=== PATIENT | male | born 1995 | race African-American/Black ===

== ENCOUNTER 2017-10-21 08:21 | Outpatient (CLI) | payer SELFPAY ==
--- NOTE | 2017-10-21 10:26 | HP ---
DATE OF SERVICE: 10/21/2017 HISTORY OF PRESENT ILLNESS: Mr. Vinay Crook is a very pleasant 22-year-old gentleman who presents to [facility] for evaluation of an ulceration of the right medial lower leg. The patient stat es that at work in the process of jumping over a fence, he scraped his right lower leg on the fence. The patient states that at first he noted a "bump." He states that later the bump became more swoll en, tender, and after sometime warm. The patient states that he was seen in the Emergency Department in [place] and treated with a course of p.o. antibiotics. He states that later the lesion was cut o pen resulting in the drainage of purulent material. He states that at this time, treatment for the w ound included packing. The patient was subsequently referred to [facility] and from [facility], the patient was referred to the Wound [facility]. The patient states he was seen in [facility] for 2 visits. He states that at [facility], he was placed on p.o. Keflex and p.o . Bactrim and later told to discontinue Keflex. The patient states he has been keeping his wound norris an and dry and covered with a Band-Aid. PAST MEDICAL HISTORY: Hypertension. PAST SURGICAL HISTORY: Negative. MEDICATIONS: Bactrim. ALLERGIES: No known diagnosed allergies. SOCIAL HISTORY: Negative for tobacco or ETOH use. FAMILY HISTORY: Significant for diabetes mellitus. The patient states that his father was diagnosed with diabetes mellitus. The patient states that family history is negative for coronary artery dise ase. PHYSICAL EXAMINATION: VITAL SIGNS: Temperature 97.7, pulse 91, respirations 17, blood pressure 144/93. GENERAL: A 22-year-old gentleman sitting on chair in examination room in no acute distress. HEENT: Normocephalic, atraumatic. NECK: No nuchal rigidity. CHEST: Clear to auscultation. CARDIAC: Regular rate and rhythm. ABDOMEN: Soft. EXTREMITIES: An ulceration of the right lower leg is present which measures approximately 1.5 x 1.4 cm. Necrotic and nonviable tissue present within the wound margins was debrided with an excisional f ull-thickness debridement with the use of a curette. Granulation tissue is present within the wound margins. No purulent drainage is associated with the wound. No erythema of the skin surrounding the wound is present. No maceration of the skin of the periwound is noted. A dorsalis pedis pulse is p alpable on the right. Mild to moderate edema of the right foot and lower leg is present on exam toda y. NEUROLOGIC: Grossly nonfocal. ASSESSMENT AND PLAN: 1. Chronic venous hypertension with ulceration. [employer] Rope, ABD, [place]br[place], and 3M Coban 2-layer c ompression system will be applied to the ulceration today. I will see Mr. Crook again in one week. The patient has been asked to keep the wrap applied in clinic today clean and dry until his followu p visit. The patient understands and is in agreement with the preceding treatment plan. The patient is also to continue p.o. Bactrim as previously prescribed. 2. Hypertension.
== END 2017-10-21 08:22 | disposition home or self-care (01) ==
LOC: WCC 08:21
PROVIDERS: ATTEND Family Medicine
DX: I87.311 Chronic venous hypertension (idiopathic) with ulcer of right lower extremity (principal); L97.519 Non-pressure chronic ulcer of other part of right foot with unspecified severity; I10 Essential (primary) hypertension
CPT/HCPCS: 11042; 99203; A4649; G0463